=== PATIENT | male | born 1965 | race Caucasian/White ===

== ENCOUNTER 2016-08-17 14:32 | Emergency (ER) | payer OTHER ==
[~2016-08-17] VITALS: Ht 175.3 cm; Wt 64.0 kg
[2016-08-17 14:35] VITALS: BP 121/71
[2016-08-17] MEDS ORDERED: MAG HYDROX/AL HYDROX/SIMETH 30 ML UDC ONE (14:58)
[2016-08-17] MEDS ORDERED: FAMOTIDINE (20 MG) 20 MG TABLET ONE (14:58)
[2016-08-17] MEDS ORDERED: FAMOTIDINE (20 MG) 20 MG TABLET PO ONE (15:00)
[2016-08-17] MEDS ORDERED: MAG HYDROX/AL HYDROX/SIMETH 30 ML UDC PO ONE (15:00)
[2016-08-17] MEDS ORDERED: LORAZEPAM 1 MG TABLET PO ONE (15:30)
== END 2016-08-17 15:54 | disposition home or self-care (01) ==
LOC: ER 14:36
DX: R10.10 Upper abdominal pain, unspecified (principal); F10.10 Alcohol abuse, uncomplicated; I10 Essential (primary) hypertension; F41.9 Anxiety disorder, unspecified
CPT/HCPCS: 99283; A4606; Z7610